=== PATIENT | female | born 1955 | race Caucasian/White ===

== ENCOUNTER 2016-05-31 21:41 | Emergency (ER) | payer MEDICARE, OTHER ==
[~2016-05-31] VITALS: Ht 165.1 cm; Wt 84.4 kg
[2016-05-31] MEDS ORDERED: LACTATED RINGERS 1,000 ML IV ONE (22:51)
--- NOTE | 2016-05-31 23:03 | ED GI ---
General Chief Complaint: Abdominal/GI Problems Stated Complaint: NAUSEA/DIZZINESS/WEAKNESS Nursing Triage Note: PT CO OF EPIGASTRIC PAIN AND SOME DIARRHEA, PT STATES REALLY THIRSTY Sepsis Screen: No Definite Risk Source of Information: Patient (VAGUE HISTORIAN) History of Present Illness Time Seen By Provider: 22:38 Initial Comments PT STATES "I JUST DON'T FEEL GOOD"--VERY DIFFICULT TO OBTAIN ANY INFORMATION FROM PT PT EVENTUALLY STATES SHE HAS HAD EPIGASTRIC PAIN , NAUSEA AND DIARRHEA FOR A COUPLE OF WEEKS SYMPTOMS MOSTLY WITH EATING, BUT HAS CONTINUED TO EAT REGULARLY--ATE BANANAS, CHICKEN AND VEGETABLES TODAY, AND HAS HAD MOSTLY TEA TODAY WITH SOME WATER, APPROXIMATELY 60 OZ PT HAS NOT HAD ANY DIARRHEA FOR 3 DAYS, SINCE TAKING IMMODIUM, NO BM SINCE THEN C/O NAUSEA, NO VOMITING HAD TEMP OF 99.6 TODAY STATES SHE HAS LOST 11 LBS IN THE LAST COUPLE OF WEEKS C/O BEING VERY THIRSTY NO URINARY SYMPTOMS, VOIDING A NORMAL AMOUNT HAS HISTORY OF PANCREATITIS, AND THIS FEELS SIMILAR HAS NOT SOUGHT CARE UNTIL TODAY SYMPTOMS NO DIFFERENT TODAY PT HAS HAD GASTRIC SLEEVE BY DR. OLSEN 1 YEAR AGO PT ALSO HAS HISTORY OF MULTIPLE ABDOMINAL COMPLICATIONS 11 YEARS AGO-2006--HAD PANCREATITIS AND HAD ERCP WITH BILIARY / PANCREATIC DUCT STENTS, WITH BOWEL PERFORATION, RETROPERITONEAL ABSCESS, PNEUMOTHORAX, SEPSIS--HOSPITALIZED X 9 WEEKS . PCP: AMADEO HAILE SURGEON: , NEXT APPOINTMENT IN 1 WEEK FOR ROUTINE FOLLOW UP Allergies and Home Medications Allergies Coded Allergies: paroxetine (Unverified Allergy, Intermediate, NAUSEA/VOMITING, 04/21/15) morphine (Unverified Allergy, Mild, MIGRAINES, 04/21/15) promethazine (Unverified Allergy, Unknown, MARKETING AUTOMATION ANALYST, 04/21/15) sumatriptan (Unverified Allergy, Unknown, MUSCLE PAIN, 04/21/15) Home Medications Nitrofurantoin Monohyd/M-Cryst 100 Mg Capsule, 100 MG PO BID, #20 Prescribed by: REVA WEST on 06/01/16 013 Ondansetron 4 Mg Tab.rapdis, 4 MG PO Q4H, #10 Prescribed by: REVA WEST on 06/01/16 0131 Sucralfate 1 Gm/10 Ml Oral.susp, 1 GM PO QID AC AND HS, #400 Prescribed by: REVA WEST on 06/01/16 0131 Review of Systems Constitutional: see HPI, malaise, weakness EENTM: No Symptoms Reported Respiratory: No Symptoms Reported Cardiovascular: No Symptoms Reported Gastrointestinal: See HPI, Abdominal Pain, Diarrhea, Nausea, Denies Vomiting Genitourinary: No Symptoms Reported Musculoskeletal: no symptoms reported Skin: no symptoms reported Psychiatric/Neurological: No Symptoms Reported Endocrine: No Symptoms Reported Hematologic/Lymphatic: See HPI, Anemia (LAST HGB 10.1) Past Ylflzak-Wrpzuq-Pvqvvp Hx Patient Social History Alcohol Use: Denies Use Recreational Drug Use: No Smoking Status: Never a Smoker Recent Foreign Travel: No Contact w/Someone Who Travel: No Recent Infectious Disease Expo: No Recent Hopitalizations: No (SEE LIST FOR CURRENT HX, EXTENSIVE) Surgeries HX Surgeries: Yes (BILATERAL BREAST BIOPSIES;JAW SURGERY FOR MAL OCCLUSION; HYST/BSO; RIGHT OVARIAN CYST;MULTIPLE ERCP'S-BILIARY /PANCREATIC STENTS; BOWEL PERFORATION AND PNEUMOTHORAX WITH ERCP 2005-WITH RETROPERITONEAL ABSCESS AND SEPSIS, RIGHT HYDRONEPHROSIS DUE TO ABSCESS WITH URETERAL STENT 05/2006; EGD'S ; GASTRIC SLEEVE 05/2015; SPINAL STEROID INJECTIONS; BILATERAL KNEE REPLACEMENTS ; LEFT PERONEAL NERVE REPAIR; SKIN CANCER REMOVED) Surgeries: Abdominal, Breast, Gallbladder, Hysterectomy, Oophorectomy, Orthopedic, Tonsillectomy Respiratory Hx Respiratory Disorders: Yes (LEFT LUNG NODULE) Respiratory Disorders: Pneumonia, Chronic Bronchitis, COPD Neurological Hx Neurological Disorders: Yes Neurological Disorders: Headaches /Migraines Reproductive System Female Reproductive Disorders: Ovarian Cyst PHYSICAL THERAPIST History: Hysterectomy Genitourinary Hx Genitourinary Disorders: Yes (RIGHT HYDRONEPHROSIS FROM RETROPERITONEAL ABSCESS--WITH URETERAL STENT PLACEMENT) Genitourinary Disorders: Bladder Infection Gastrointestinal Hx Gastrointestinal Disorders: Yes (ERCP'S / BILIARY AND PANCREATIC STENTS; BOWEL PERFORATION/ PNEUMOTHORAX / RETROPERITONEAL ABSCESS WITH RIGHT HYDRONEPHROSIS/URETERAL STENT AND SEPSIS--HOSPITALIZED X 9 WEEKS; MULTIPLE EPISODES OF PANCREATITIS; GASTRIC SLEEVE SURGERY 05/2015) Gastrointestinal Disorders: Gastroesophageal Reflux, Pancreatitis, Ulcer, Gall Bladder Disease Musculoskeletal Hx Musculoskeletal Disorders: Yes (CHRONIC GENERALIZED PAIN / JOINT PAIN; SJOGREN'S SYNDROME) Musculoskeletal Disorders: Rheumatoid Arthritis, Chronic Back Pain Endocrine Hx Endocrine Disorders: Yes Endocrine Disorders: Lupus HEENT HX ENT Disorders: Yes (JAW SURGERY FOR MAL OCCLUSION) Cancer Hx Cancer: Yes Cancer: Skin Psychosocial Hx Psychiatric Problems: Yes Behavioral Health Disorders: Anxiety, Depression Integumentary HX Skin/Integumentary Disorder: No Blood Transfusions Hx Blood Disorders: Yes (ANEMIA) Physical Exam Vital Signs VS - Last 72 Hours, by Label 05/31/16 22:44 Temp 98.4 Pulse 68 Resp 18 B/P (MAP) 130/81 Capillary Refill : Less Than 3 Seconds General Appearance: WD/WN, no apparent distress HEENT: PERRL/EOMI Neck: normal inspection Respiratory: normal breath sounds, no respiratory distress, no accessory muscle use Cardiovascular: regular rate, rhythm, no murmur Gastrointestinal: normal bowel sounds, soft, no organomegaly, no pulsatile mass , No distended, No guarding, No rebound, tenderness (SUPRAPUBIC), No hernia, No mass Extremities: normal inspection Back: no CVA tenderness Neurologic/Psychiatric: loan examiner II-XII nml as tested, no motor/sensory deficits, alert, normal mood/affect, oriented x 3 Skin: warm/dry, pallor Focused Exam Lactic Acid Level Laboratory Tests Test 05/31/16 23:36 Lactic Acid Level 0.51 MMOL/L (0.50-2.00) Progress/Results/Core Measures Results/Orders Lab Results Laboratory Tests Test 05/31/16 23:00 05/31/16 23:15 05/31/16 23:36 Range/Units Urine Color YELLOW Urine Clarity CLEAR Urine pH 6 5-9 Urine Specific [place] 1.020 1.016-1.022 Urine Protein NEGATIVE NEGATIVE Urine Glucose (UA) NEGATIVE NEGATIVE Urine Ketones NEGATIVE NEGATIVE Urine Nitrite NEGATIVE NEGATIVE Urine Bilirubin NEGATIVE NEGATIVE Urine Urobilinogen NORMAL NORMAL MG/DL Urine Leukocyte Esterase 3+ H NEGATIVE Urine RBC (Auto) NEGATIVE NEGATIVE Urine RBC NONE /HPF Urine WBC 5-10 H /HPF Urine Squamous Epithelial Cells 0-2 /HPF Urine Crystals NONE /LPF Urine Bacteria FEW H /HPF Urine Casts NONE /LPF Urine Mucus SMALL H /LPF Urine Culture Indicated YES Urine Opiates Screen NEGATIVE NEGATIVE Urine Oxycodone Screen NEGATIVE NEGATIVE Urine Methadone Screen NEGATIVE NEGATIVE Urine Propoxyphene Screen NEGATIVE NEGATIVE Urine Barbiturates Screen NEGATIVE NEGATIVE Ur Tricyclic Antidepressants Screen POSITIVE H NEGATIVE Urine Phencyclidine Screen NEGATIVE NEGATIVE Urine Amphetamines Screen NEGATIVE NEGATIVE Urine Methamphetamines Screen NEGATIVE NEGATIVE Urine Benzodiazepines Screen NEGATIVE NEGATIVE Urine Cocaine Screen NEGATIVE NEGATIVE Urine Cannabinoids Screen NEGATIVE NEGATIVE White Blood Count 7.7 4.3-11.0 10^3/uL Red Blood Count 4.22 L 4.35-5.85 10^6/uL Hemoglobin 10.7 L 11.5-16.0 G/DL Hematocrit 36 35-52 % Mean Corpuscular Volume 84 80-99 FL Mean Corpuscular Hemoglobin 25 25-34 PG Mean Corpuscular Hemoglobin Concent 30 L 32-36 G/DL Red Cell Distribution Width 14.0 10.0-14.5 % Platelet Count 212 130-400 10^3/uL Mean Platelet Volume 10.7 H 7.4-10.4 FL Neutrophils (%) (Auto) 54 42-75 % Lymphocytes (%) (Auto) 29 12-44 % Monocytes (%) (Auto) 15 H 0-12 % Eosinophils (%) (Auto) 2 0-10 % Basophils (%) (Auto) 0 0-10 % Neutrophils # (Auto) 4.2 1.8-7.8 X 10^3 Lymphocytes # (Auto) 2.2 1.0-4.0 X 10^3 Monocytes # (Auto) 1.1 H 0.0-1.0 X 10^3 Eosinophils # (Auto) 0.1 0.0-0.3 10^3/uL Basophils # (Auto) 0.0 0.0-0.1 10^3/uL Sodium Level 143 135-145 MMOL/L Potassium Level 3.6 3.6-5.0 MMOL/L Chloride Level 109 H 98-107 MMOL/L Carbon Dioxide Level 25 21-32 MMOL/L Anion Gap 9 5-14 MMOL/L Blood Urea Nitrogen 11 7-18 MG/DL Creatinine 0.79 0.60-1.30 MG/DL Estimat Glomerular Filtration Rate > 60 BUN/Creatinine Ratio 14 Glucose Level 97 70-105 MG/DL Calcium Level 8.7 8.5-10.1 MG/DL Magnesium Level 2.2 1.8-2.4 MG/DL Total Bilirubin 0.2 0.1-1.0 MG/DL Aspartate Amino Transf (AST/SGOT) 14 5-34 U/L Alanine Aminotransferase (ALT/SGPT) 9 0-55 U/L Alkaline Phosphatase 76 40-136 U/L Total Protein 6.1 L 6.4-8.2 G/DL Albumin 3.8 3.2-4.5 G/DL Amylase Level 44 25-125 U/L Lipase 17 8-78 U/L Lactic Acid Level 0.51 0.50-2.00 MMOL/L My Orders Orders - REVA WEST DO Saline Lock/Iv-Start (05/31/16 22:51) Amylase (05/31/16 22:51) Cbc With Automated Diff (05/31/16 22:51) Comprehensive Metabolic Panel (05/31/16:51) Drug Screen Stat (Urine) (05/31/16:51) Lactic Acid Analyzer (05/31/16:51) Lipase (05/31/16:51) Magnesium (05/31/16 22:51) Ua Culture If Indicated (05/31/16:) Blood Culture (05/31/16:51) Saline Lock/Iv-Start (05/31/16:51) Lactated Ringers (Lr 1000 Ml Iv Solution (05/31/16 22:51) Urine Culture (05/31/16 23:00) Ct Abdomen/Pelvis W (06/01/16 00:01) Acute Abd Series (06/01/16 00:01) Ondansetron Injection (Zofran Injectio (06/01/16 00:15) Iohexol Injection (Omnipaque 350 Mg/Ml 1 (06/01/16 00:30) Ns (Ivpb) (Sodium Chloride 0.9% Ivpb Bag (06/01/16 00:30) Antacid Suspension (Mylanta Suspension (06/01/16 01:30) Lidocaine 2% Viscous 15 Ml (Xylocaine Vi (06/01/16 01:30) Rx-Ondansetron Po (Rx-Zofran Po) (06/01/16 01:29) Rx-Nitrofurantoin [place] (Rx-Macrobid) (06/01/16 01:29) Medications Given in ED Current Medications Medications Dose Ordered Sig/Angel Route Start Time Stop Time Status Last Admin Dose Admin Iohexol 100 ml ONCE ONCE IV 06/01/16 00:30 06/01/16 00:31 DC 06/01/16 00:21 100 ML Lactated Ringer's 1,000 ml @ 0 mls/hr Q0M ONCE IV 05/31/16 22:51 05/31/16 22:52 DC 05/31/16 23:19 1,000 MLS/HR Ondansetron HCl 4 mg ONCE ONCE IVP 06/01/16 00:15 06/01/16 00:16 DC 06/01/16 00:47 4 MG Sodium Chloride 100 ml ONCE ONCE IV 06/01/16 00:30 06/01/16 00:31 DC 06/01/16 00:21 80 ML Vital Signs/I&O Vital Sign - Last 12Hours 05/31/16 22:44 Temp 98.4 Pulse 68 Resp 18 B/P (MAP) 130/81 Blood Pressure Mean: 97 Progress Note : Progress Note SYMPTOMS RESOLVED AT DISMISSAL Diagnostic Imaging Comments ACUTE ABDOMEN XRAYS--NO ACUTE PROCESS, PENDING RADIOLOGIST REVIEW CT ABDOMEN/PELVIS--NO ACUTE PROCESS, NON-SPECIFIC BOWEL GAS PATTERN, MILD TO MODERATE RETAINED STOOL. POST SURGICAL CHANGES, PARTIAL CHRONIC RIGHT UPJ OBSTRUCTION, TINY LLL LUNG NODULE--PER [facility] VIA FAX AT 0110 Reviewed: Reviewed by Me Departure Impression Impression: Primary Impression: Epigastric abdominal pain Additional Impression: UTI (urinary tract infection) Disposition: HOME, SELF-CARE Condition: Improved Departure-Patient Inst. Referrals: ISELA OLSEN MD, KIMBERLY MD (PCP) Primary Care Physician Patient Instructions: Acute Abdomen (Belly Pain), Adult (DC), Urinary Tract Infection, Adult (DC) Add. Discharge Instructions: CONTINUE YOUR CURRENT MEDICATIONS PRESCRIBED KEEP YOUR APPOINTMENT WITH DR. OLSEN NEXT WEEK SCHEDULED All discharge instructions reviewed with patient and/or family. Voiced understanding. Scripts Nitrofurantoin Monohyd/M-Cryst (Macrobid 100 mg Capsule) 100 Mg Capsule 100 MG PO BID, #20 CAP Prov: REVA WEST DO 06/01/16 Ondansetron (Zofran Odt) 4 Mg Tab.rapdis 4 MG PO Q4H for Nausea/Vomiting, #10 TAB Prov: REVA WEST DO 06/01/16 Sucralfate (Carafate) 1 Gm/10 Ml Oral.susp 1 GM PO QID AC AND HS, #400 ML Prov: REVA WEST DO 06/01/16 REVA WEST DO May 31, 2016 23:03
[2016-05-31 23:09] LABS: BILIRUBIN,URINE NEGATIVE (NEGATIVE); KETONES,URINE NEGATIVE (NEGATIVE); LEUKOCYTE ESTERASE ,URINE 3+ (NEGATIVE); NITRITE,URINE NEGATIVE (NEGATIVE); PH,URINE 6 (5-9); PROTEIN,URINE NEGATIVE (NEGATIVE); UROBILINOGEN,URINE NORMAL (NORMAL)
[2016-05-31 23:17] LABS: SQUAMOUS EPITHELIAL CELL,UR 0-2 /HPF
[2016-05-31 23:25] LABS: BASOPHILS % (AUTO) 0 % (0-10); EOSINOPHILS # (AUTO) 0.1 10^3/uL (0.0-0.3); EOSINOPHILS % (AUTO) 2 % (0-10); LYMPHOCYTES # (AUTO) 2.2 X 10^3 (1.0-4.0); LYMPHOCYTES % (AUTO) 29 % (12-44); MEAN CORPUSCULAR HEMOGLOBIN 25 PG (25-34); MEAN CORPUSCULAR HGB CONC 30 G/DL (32-36); MEAN CORPUSCULAR VOLUME 84 FL (80-99); MEAN PLATELET VOLUME 10.7 FL (7.4-10.4); MONOCYTES # (AUTO) 1.1 X 10^3 (0.0-1.0); MONOCYTES % (AUTO) 15 % (0-12); NEUTROPHILS # (AUTO) 4.2 X 10^3 (1.8-7.8); NEUTROPHILS % (AUTO) 54 % (42-75); PLATELET COUNT 212 10^3/uL (130-400); RED BLOOD COUNT 4.22 10^6/uL (4.35-5.85); WHITE BLOOD COUNT 7.7 10^3/uL (4.3-11.0)
[2016-05-31 23:50] LABS: ALANINE AMINOTRANSFERASE 9 U/L (0-55); ALBUMIN 3.8 G/DL (3.2-4.5); AMYLASE 44 U/L (25-125); ANION GAP 9 MMOL/L (5-14); ASPARTATE AMINO TRANSFERASE 14 U/L (5-34); BILIRUBIN,TOTAL 0.2 MG/DL (0.1-1.0); BLOOD UREA NITROGEN 11 MG/DL (7-18); BUN/CREATININE RATIO 14; CALCIUM 8.7 MG/DL (8.5-10.1); CARBON DIOXIDE 25 MMOL/L (21-32); CHLORIDE 109 MMOL/L (98-107); CREATININE SERUM 0.79 MG/DL (0.60-1.30); GFR ESTIMATED > 60; GLUCOSE 97 MG/DL (70-105); LIPASE 17 U/L (8-78); MAGNESIUM 2.2 MG/DL (1.8-2.4); POTASSIUM 3.6 MMOL/L (3.6-5.0); SODIUM 143 MMOL/L (135-145); TOTAL PROTEIN 6.1 G/DL (6.4-8.2)
[2016-06-01] MEDS ORDERED: ONDANSETRON 4 MG/2 ML (SDV) Z0FRAN IVP ONE (00:15)
[2016-06-01] MEDS ORDERED: IOHEXOL 350 MG/ML 100 ML (OMNIPAQUE 350) VIAL IV ONE (00:30)
[2016-06-01] MEDS ORDERED: NS 100 ML (IVPB) BAG IV ONE (00:30)
[2016-06-01] MEDS ORDERED: RX-ONDANSETRON 4 MG ODT (ZOFRAN) PPK #4 PO STA (01:29)
[2016-06-01] MEDS ORDERED: RX-NITROFURANTOIN 100 MG (MACROBID) CAP PPK#2 PO STA (01:29)
[2016-06-01] MEDS ORDERED: LIDOCAINE 2% VISCOUS 15 ML UDC PO ONE (01:30)
[2016-06-01] MEDS ORDERED: ANTACID SUSP 30 ML UDC (MYLANTA) PO ONE (01:30)
[2016-06-01] MEDS ORDERED: SUCR1ORA5 PO (01:31)
[2016-06-01] MEDS ORDERED: NITR-65 PO (01:31)
[2016-06-01] MEDS ORDERED: ONDA4TAB8 PO (01:31)
[2016-06-01 01:41] VITALS: BP 135/78
--- NOTE | 2016-06-01 07:00 | Diagnostic Imaging Report ---
PROCEDURE: CT abdomen and pelvis with contrast. TECHNIQUE: Multiple contiguous axial images were obtained through the abdomen and pelvis after administration of intravenous contrast. INDICATION: Epigastric pain with some diarrhea. History of the known lung nodules. Cholecystectomy and hysterectomy. Comparison with 07/04/2014 CT scan. FINDINGS: There is a noncalcified 5 mm nodule in the left lung base laterally. This was present on previous exam and has not changed significantly in the interim. No new lesions have developed. Liver appears normal. Bile ducts are not dilated. Pancreas and spleen are normal. Adrenal glands appear normal. Kidneys show symmetrical enhancement. There is prominence of the renal pelvis on the right which has not changed significantly since previous exam. Surgical changes noted of the stomach. Small bowel is not dilated. Colon shows normal stool and gas pattern. There is normal enhancement of the abdominal aorta and vessels without evidence of aneurysm. There is no free air free fluid. No pelvic masses. IMPRESSION: 1. No acute intra-abdominal abnormality. 2. 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 3. 5 mm nodule left lower lobe unchanged since 07/04/2014. These findings are in agreement with preliminary report. Dictated by: Dictated on workstation # [id number]
--- NOTE | 2016-06-01 07:44 | Diagnostic Imaging Report ---
INDICATION: Abdominal pain. FINDINGS: The lungs are clear. There is no free air under the diaphragm. Upright and supine abdomen shows no air-fluid levels. No dilated loops of bowel. There is normal stool and gas pattern throughout the colon. Multiple surgical clips noted in the upper abdomen. No pathologic calcification demonstrated. IMPRESSION: No acute abnormalities demonstrated. Dictated by: Dictated on workstation # [id number]
== END 2016-06-01 01:44 | disposition home or self-care (01) ==
LOC: EDUNIT# 21:41 → ER 21:43
DX: R10.13 Epigastric pain (principal); N39.0 Urinary tract infection, site not specified; J44.9 Chronic obstructive pulmonary disease, unspecified; R91.1 Solitary pulmonary nodule; Z90.49 Acquired absence of other specified parts of digestive tract; Z98.84 Bariatric surgery status
CPT/HCPCS: 36415; 74022; 74177; 80053; 80306; 81000; 82150; 83605; 83690; 83735; 85025; 87040; 87077; 87088; 87186; 96361; 96374

== ENCOUNTER 2019-12-23 05:42 | Outpatient (RCR) | payer MEDICARE, OTHER ==
[~2019-12-23] VITALS: Ht 165.1 cm; Wt 99.1 kg
[~2019-12-23 05:42] MED LIST: BUPR200T2 PO; CITA40TA19 PO; CYCL10TA9 PO; CYCL1DRO OU; GBPN600T PO; NITR-65 PO; ONDA4TAB8 PO; PRED5TAB PO; SUCR1ORA5 PO; TRAZ150T72 PO
== END 2019-12-23 09:43 | disposition home or self-care (01) ==
LOC: PREOP 05:42
PROVIDERS: ATTEND Surgery
DX: Z01.812 Encounter for preprocedural laboratory examination (principal); K21.9 Gastro-esophageal reflux disease without esophagitis; Z20.828 Contact with and (suspected) exposure to other viral communicable diseases
CPT/HCPCS: 87635

== ENCOUNTER 2019-12-25 09:52 | Day surgery (SDC) | payer MEDICARE, OTHER ==
--- NOTE | 2019-12-19 07:33 | HISTORY AND PHYSICAL ---
DATE OF SERVICE: DATE OF ADMISSION: 12/25/2019. ATTENDING PRIMARY CARE PHYSICIAN: Dr. Rodrigues. HISTORY OF PRESENT ILLNESS: The patient is a 64-year-old female, who is status post laparoscopic gastric sleeve resection on 05/18/2015. She initially did well with surgery; however, has not been able to exercise very much; however, has debilitating rheumatoid arthritis. At this time, she states that her pain is significantly severe and she has this pain that starts in the right buttock and extends throughout the right lower extremity. Her sales merchandising specialist feels that this is a nerve problem and she is scheduled to see a specialist for possible nerve stimulator placement. She reports that she has had issues with reflux and regurgitation. This was not initially problem; however, has developed and worsened over time. She is currently on Pepcid, Nexium and Carafate, which has not helped. She does not report any hematemesis, no coffee ground emesis. PAST MEDICAL HISTORY: Rheumatoid arthritis, shingles, depression, muscle spasms, gastroesophageal reflux disease, migraine headaches, Sjogren syndrome, obstructive sleep apnea. PAST SURGICAL HISTORY: Tonsillectomy in 1962, bilateral breast biopsies in 1976, repair of malocclusion jaw in 1979, total hysterectomy in 1994, removal of abdominal wall benign mass in 1997, cholecystectomy in 2001, ERCP in 2001, repair of bowel perforation in 2005, right total knee arthroplasty in 2008, left total knee arthroplasty in 2010. ALLERGIES: PAXIL, IMITREX, MORPHINE. EFFEXOR. MEDICATIONS: Wellbutrin 200 mg daily, Celexa 40 mg daily, Flexeril 10 mg t.i.d. p.r.n., Restasis eye drops b.i.d., gabapentin 600 mg b.i.d., hydrocodone 10/325 mg 5 times a day, prednisone 5 mg daily, Compazine 10 mg q.6 hours p.r.n., trazodone 150 mg at bedtime, Zanaflex daily. SOCIAL HISTORY: Negative smoke, negative alcohol. FAMILY HISTORY: Father with lung cancer in his 60s. Mother, myocardial infarction at age 78. VITAL SIGNS: Stable. Blood pressure 148/81. Preoperative weight 249.6 pounds, last weight 186.2 pounds, today's weight is 218.6 pounds at 5 feet 5 inches and a body mass index of 36.4. Total weight loss of 22 pounds. REVIEW OF SYSTEMS: A well-nourished female, currently in no acute distress. She is not experiencing any shortness of breath or difficulty breathing. No chest pain, palpitations, diaphoresis. Intermittent episodes of epigastric pain as well as a pressure sensation substernally with regurgitation, which was initially mild; however, it has become more frequent. No hematemesis, no coffee ground emesis. No diarrhea, constipation, no red blood per rectum, no dark tarry stools. No fever, chills, no recent inadvertent weight loss. All other review of systems negative. PHYSICAL EXAMINATION: CHEST: Clear. Good breath sounds bilaterally. HEART: Regular, no murmurs. EXTREMITIES: No lower extremity edema, negative Homans sign. HEENT: No scleral icterus. NECK: No cervical lymphadenopathy. ABDOMEN: Soft, nondistended with pain in the epigastric region upon deep palpation. No peritoneal signs. No hernias. SKIN: Warm, dry. ASSESSMENT AND PLAN: A 64-year-old female with gastroesophageal reflux disease, reflux as well as regurgitation. This may be due to reflux esophagitis; however, there is also the possibility of a stricture at the gastroesophageal junction as well as the body of the stomach where the gastric sleeve resection had occurred and we will proceed with an EGD, biopsies as appropriate as well as possible balloon dilatation. Job ID: [id number] DocumentID: [id number] Dictated Date: 12/17/2019 16:23:22 Emergency Communications Officer Date: 12/17/2019 17:10:40 Dictated By: ISELA OLSEN MD [facility]
[2019-12-25] VITALS (17 sets, daily range): BP systolic 101–165; BP diastolic 56–74
[~2019-12-25] VITALS: Ht 165.1 cm; Wt 99.1 kg
[2019-12-25] MEDS ORDERED: NS IV 500 ML 500 ML IV PRN (10:00)
[2019-12-25] MEDS ORDERED: HURRICAINE EXT TUBE (BENZOCAINE) XX PRN (10:00)
[2019-12-25] MEDS ORDERED: MIDAZOLAM 5 MG/5 ML (VERSED) VIAL IV ONE (10:00)
[2019-12-25] MEDS ORDERED: fentaNYL INJECTION 100 MCG/2 ML AMP IVP ONE (10:00)
[2019-12-25] MEDS ORDERED: LIDOCAINE JELLY 2% 6 ML SYRINGE MM PRN (10:00)
[2019-12-25] MEDS ORDERED: NS IV 500 ML 500 ML ONE (10:02)
--- NOTE | 2019-12-25 10:24 | Conscious Sedation/ASA ---
Conscious Sedation Pre-Proced Time 10:00 ASA Score 2 For ASA 3 and 4: Consider anesthesia and medical clearance. Also, for patients with a history of failed moderate sedation consider anesthesia. Airway Lungs Heart ASA score ASA 1: a normal healthy patient ASA 2: a patient with a mild systemic disease (mid diabetes, controlled hypertension, obesity ASA 3: a patient with a severe systemic disease that limits activity (angina, COPD, prior Myocardial infarction) ASA 4: a patient with an incapacitating disease that is a constant threat to life (CHF, renal failure) ASA 5: a moribund patient not expected to survive 24 hrs. (ruptured aneurysm) ASA 6: a declared brain- patient whose organs are being harvested. For emergent operations, add the letter E after the classification Mallampati Classification Grade 2 Sedation Plan Analgesia, Amnesia, Plan communicated to team members, Discussed options with patient/fam, Discussed risks with patient/fam The patient is an appropriate candidate to undergo the planned procedure, sedation, and anesthesia. The patient immediately re-assessed prior to indication. ISELA OLSEN MD Dec 25, 2019 10:24
--- NOTE | 2019-12-25 10:25 | Progress Note-Pre Operative ---
Pre-Operative Progress Note H&P Reviewed The H&P was reviewed, patient examined and no changes noted. Date Seen by Provider: Dec 25, 2019 Time Seen by Provider: 10:00 Date H&P Reviewed: Dec 25, 2019 Time H&P Reviewed: 10:00 Pre-Operative Diagnosis: dysphagia, GERD ISELA OLSEN MD Dec 25, 2019 10:25
--- NOTE | 2019-12-25 10:26 | Discharge Inst-Surgical ---
D/C Lap Instructions-PRETTY Follow Up Activity as tolerated High Fiber Diet 25g or more per day Avoid Alcohol, Caffeine, Spicy [place] and Acid foods. Drink 64 fluid oz or more of fluids per day. Symptoms to Report: Fever over 101 degree F, Nausea/Vomiting If any problems/questions: Contact your physician or go to Emergency Room ISELA OLSEN MD Dec 25, 2019 10:26
[2019-12-25] MEDS ORDERED: ACETAMINOPHEN 325 MG TABLET PO PRN (10:30)
[2019-12-25] MEDS ORDERED: ONDANSETRON 4 MG/2 ML (SDV) Z0FRAN IVP PRN (10:30)
[2019-12-25] MEDS ORDERED: HYDROcodone/APAP 5 MG/325 MG (LORTAB) TAB PO PRN (10:30)
[2019-12-25] MEDS ORDERED: SUCR1TAB36 PO (10:33)
[2019-12-25] MEDS ORDERED: FAMO-119 PO (10:33)
[2019-12-25] MEDS ORDERED: NF-ESOM40C PO (10:33)
[2019-12-25] MEDS ORDERED: HURRICAINE EXT TUBE (BENZOCAINE) ONE (11:04)
[2019-12-25] MEDS ORDERED: LIDOCAINE JELLY 2% 6 ML SYRINGE ONE (11:04)
[2019-12-25] MEDS ORDERED: fentaNYL INJECTION 100 MCG/2 ML AMP ONE ×2 (11:05→11:25)
[2019-12-25] MEDS ORDERED: MIDAZOLAM 5 MG/5 ML (VERSED) VIAL ONE ×2 (11:05→11:25)
--- NOTE | 2019-12-25 11:50 | Progress Note-Post Operative ---
Post-Operative Progess Note Surgeon (s)/Video Specialist (s) Surgeon ISELA OLSEN MD Video Specialist: none Pre-Operative Diagnosis dysphagia, GERD Post-Operative Diagnosis reflux esophagitis(stage2) with mild distal esoph stricture, small HH(1.5cm), mild distal antral stricture, moderate gastritis. Procedure & Operative Findings Date of Procedure 12/25/19 Procedure Performed/Findings EGD with bx and balloon dilatation x2. Anesthesia Type cs Estimated Blood Loss Estimated blood loss (mL): minimal Specimens/Packing Specimens Removed ge jxn, antrum ISELA OLSEN MD Dec 25, 2019 11:50
--- NOTE | 2019-12-25 12:30 | NUR ---
PT WHEN TAKEN OFF OF O2 DROPS TO 87-88%, PT VERBALIZES FEELING TIRED. O2 CONTINUED WHILE PT RESTING THEN WILL ATTEMPT TO REMOVE IN A LITTLE BIT.
--- NOTE | 2019-12-25 21:41 | OPERATIVE REPORT ---
DATE OF SERVICE: 12/25/2019 ATTENDING PRIMARY CARE PHYSICIAN: Dr. Rodrigues. PREOPERATIVE DIAGNOSES: Dysphagia, gastroesophageal reflux disease, status post gastric sleeve resection. POSTOPERATIVE DIAGNOSES: Reflux esophagitis stage II with a mild distal esophageal stricture, small hiatal hernia 1.5 cm in size, mild stricture at the incisura angularis of the distal antrum. No distal obstructions. PROCEDURE: EGD with biopsy and balloon dilatation x2. SURGEON: Isela Olsen MD. ANESTHESIA: Conscious sedation. ESTIMATED BLOOD LOSS: Minimal. FINDINGS: Reflux esophagitis stage II with a mild distal esophageal stricture, small hiatal hernia 1.5 cm in size, mild stricture at the incisura angularis of the distal antrum. No distal obstructions. DISPOSITION: The patient tolerated the procedure well. INDICATIONS: The patient is a 64-year-old female who is status post laparoscopic gastric sleeve resection on 05/18/2015. She initially did well with the surgery; however, has not been able to exercise very much due to a debilitating rheumatoid arthritis. She states that she has significant pain throughout the right buttock and extends through the entire right lower extremity. She is scheduled to see pain specialist to see if possibly place a nerve stimulator placement. She reports that she has had issues with reflux and regurgitation as well as dysphagia, which has slowly developed over time. She is currently on Pepcid, Nexium and Carafate and states that this has not helped much. She does not report any hematemesis, no coffee ground emesis. DESCRIPTION OF PROCEDURE: The patient was brought to the endoscopy suite, laid in the left lateral decubitus position. After adequate IV pain and sedative medications and conscious sedation anesthesia, the mouthpiece was applied. The endoscope was placed in the mouth, visualizing the pharynx and hypopharyngeal region. Vocal cords, epiglottis and vallecula identified and appeared to be normal. The endoscope was then gently intubated into the esophageal opening and esophagus insufflated. The endoscope was then advanced to the first, second and third portions of esophagus at the level of GE junction, reflux esophagitis stage II identified with a mild distal esophageal stricture and Schatzki's ring identified. This area was biopsied with forceps with visualization of good hemostasis. The endoscope was then advanced to the pylorus through the into the stomach and endoscope retroflexed, visualizing a small hiatal hernia approximately 1.5 cm in size. The Schatzki's ring was also identified in the retroflexed view. The endoscope was then advanced and at the area of resection near the incisura angularis of the lesser curvature, there was a mild stricture also identified. The endoscope was able to pass through this region without any difficulty and there was a moderate gastritis of the distal antrum. A biopsy was taken of the antrum with visualization of good hemostasis. The endoscope was then advanced to the pylorus and the first and second portion of the duodenum, which appeared normal with no distal obstructions. We then proceeded with balloon dilatation of the distal antral stricture and the balloon was placed into the distal antrum and pulled back to the area of stricture and insufflated to 2, 4 and 6 atmospheres of pressure with moderate resistance or 20 mm in luminal diameter. This was left in place for 60 seconds and then removed with visualization of good hemostasis as well as no mucosal tears. We then pullback the balloon to the gastroesophageal junction and proceeded in a similar manner from 2, 4 and 6 atmospheres of pressure or 20 mm in luminal diameter with moderate resistance and left this in place for 60 seconds. The balloon was desufflated and removed with visualization of good hemostasis as well as no mucosal tears. The endoscope was then slowly withdrawn while taking a second look and suctioning residual air with no additional findings. The patient tolerated the procedure well. We will recommend the necessary lifestyle and diet accommodation including small and more frequent meals, avoidance of eating at night as well as head elevation while lying supine, whichever H2 antagonist or PPI acid captain/airline pilot combination that works best for her we will have her continue. She is scheduled to see a specialist for her significant pain secondary to her rheumatoid arthritis. However, she does need to proceed with any form of regularly scheduled exercise even if it only encompasses her upper extremities to increase her heart rate for a total of 150 minutes on a weekly basis. This should help increase her basal metabolic rate and also help with initiation of weight loss again. Job ID: [id number] DocumentID: [id number] Dictated Date: 12/25/2019 11:46:24 Automatic Embroidery Machine Tender Date: 12/25/2019 21:41:01 Dictated By: ISELA OLSEN MD
== END 2019-12-25 13:15 | disposition home or self-care (01) ==
LOC: ENDO 09:52
PROVIDERS: ATTEND Surgery
DX: K22.2 Esophageal obstruction (principal); K21.00 Gastro-esophageal reflux disease with esophagitis, without bleeding; K44.9 Diaphragmatic hernia without obstruction or gangrene; M06.9 Rheumatoid arthritis, unspecified; F32.9 Major depressive disorder, single episode, unspecified; K21.9 Gastro-esophageal reflux disease without esophagitis; G43.909 Migraine, unspecified, not intractable, without status migrainosus; G47.33 Obstructive sleep apnea (adult) (pediatric); M35.00 Sjogren syndrome, unspecified; Z79.899 Other long term (current) drug therapy; Z88.5 Allergy status to narcotic agent; Z88.8 Allergy status to other drugs, medicaments and biological substances; Z98.84 Bariatric surgery status; Z90.710 Acquired absence of both cervix and uterus; Z90.49 Acquired absence of other specified parts of digestive tract; Z80.1 Family history of malignant neoplasm of trachea, bronchus and lung; Z82.49 Family history of ischemic heart disease and other diseases of the circulatory system

== ENCOUNTER → 2022-02-24 | Outpatient (CLI) | payer MEDICARE, OTHER ==
[~2022-02-24] MED LIST changes: +CYCL10TA25 PO; -CYCL10TA9 PO; +FAMO-119 PO; +NF-ESOM40C PO; +SUCR1TAB36 PO
== END | disposition home or self-care (01) ==
LOC: PREOP 05:39
PROVIDERS: ATTEND Surgery
DX: Z01.818 Encounter for other preprocedural examination (principal)

== ENCOUNTER 2022-03-09 10:25 | Day surgery (SDC) | payer MEDICARE, OTHER ==
[~2022-03-09] VITALS: Ht 165 cm; Wt 95.6 kg
[~2022-03-09 10:25] MED LIST changes: +BREX0.5T PO; +BUPR300T98 PO; +BUTA1CAP41 PO; +HYDR-3584 PO; +HYDR-3820 PO; +MAG PO; +MILN50TA PO; +MULT-593 PO; +PANT40TA52 PO; +PROC10TA10 PO; +RIZA-1 PO; +TIZA2CAP9 PO; +TOFA11TA PO; +TRAZ-227 PO
[2022-03-09] MEDS ORDERED: LACTATED RINGERS 1,000 ML IV STA (10:38)
[2022-03-09] MEDS ORDERED: HURRICAINE EXT TUBE (BENZOCAINE) XX PRN (10:45)
[2022-03-09] MEDS ORDERED: LIDOCAINE JELLY 2% 6 ML SYRINGE MM PRN (10:45)
--- NOTE | 2022-03-09 10:54 | Progress Note-Pre Operative ---
Pre-Operative Progress Note Date of Available H&P: Mar 09, 2022 Date H&P Reviewed: Mar 09, 2022 Time H&P Reviewed: 10:30 History & Physical: No changes noted Pre-Operative Diagnosis: dysphagia w/ hx esoph and pyloric stricture ISELA OLSEN MD Mar 09, 2022 10:54
[2022-03-09 10:55] VITALS: BP 138/68
--- NOTE | 2022-03-09 10:56 | Discharge Inst-Surgical ---
D/C Lap Instructions-PRETTY Follow Up Activity as tolerated High Fiber Diet 25g or more per day Avoid Alcohol, Caffeine, Spicy [place] and Acid foods. Drink 64 fluid oz or more of fluids per day. Symptoms to Report: Fever over 101 degree F, Nausea/Vomiting If any problems/questions: Contact your physician or go to Emergency Room ISELA OLSEN MD Mar 09, 2022 10:55
[2022-03-09] MEDS ORDERED: ONDANSETRON 4 MG (ZOFRAN) ORAL DISSOLVE TAB PO PRN (11:00)
[2022-03-09] MEDS ORDERED: ONDANSETRON 4 MG/2 ML (SDV) Z0FRAN IVP PRN (11:00)
[2022-03-09] MEDS ORDERED: PROPOFOL INJECTION 50 ML IV ONE (11:30)
[2022-03-09 12:14] VITALS: BP 118/58
[2022-03-09 12:19] VITALS: BP 134/64
[2022-03-09 12:24] VITALS: BP 135/62
[2022-03-09 12:25] VITALS: BP 135/62
--- NOTE | 2022-03-09 12:28 | Progress Note-Post Operative ---
Post-Operative Progess Note Surgeon (s)/Pizza Delivery Driver (s) Surgeon ISELA OLSEN MD Pizza Delivery Driver: none Pre-Operative Diagnosis dysphagia w/ hx esoph and pyloric stricture Post-Operative Diagnosis reflux esophagitis(grade B-C) with mild dist esoph stricture, moderate gastritis, small HH(1.5cm), pyloric stricture. Procedure & Operative Findings Date of Procedure 03/09/22 Procedure Performed/Findings EGD with bx and balloon dilatation esophagus and pylorus. Anesthesia Type mac Estimated Blood Loss Estimated blood loss (mL): minimal Specimens/Packing Specimens Removed ge jxn, antrum ISELA OLSEN MD Mar 09, 2022 12:28
[2022-03-09 12:55] VITALS: BP 140/65
--- NOTE | 2022-03-09 14:21 | Anesthesia-General Post-Op ---
MAC Patient Condition Mental Status/LOC: Same as Preop Cardiovascular: Satisfactory Nausea/Vomiting: Absent Respiratory: Satisfactory Pain: Controlled Complications: Absent Post Op Complications Complications None Follow Up Care/Instructions Patient Instructions None needed. Anesthesiology Discharge Order Discharge Order Patient is doing well, no complaints, stable vital signs, no apparent adverse anesthesia problems. No complications reported per nursing. SABINO SAENZ CRNA Mar 09, 2022 14:21
--- NOTE | 2022-03-09 20:20 | OPERATIVE REPORT ---
DATE OF SERVICE: 03/09/2022 ATTENDING PRIMARY CARE: Dr. Tylor Luna. PREOPERATIVE DIAGNOSIS: History of dysphagia and esophageal stricture as well as pyloric stricture with recurrent dysphagia. POSTOPERATIVE DIAGNOSES: Reflux esophagitis, [place] between grade B and C with a mild distal esophageal stricture, small hiatal hernia, 1.5 cm in size. Intact gastric sleeve resection, moderate pyloric stricture. PROCEDURE: EGD with balloon dilatation of the pylorus and the gastroesophageal junction and biopsy. SURGEON:. Isela Olsen MD ANESTHESIA: Monitored anesthesia care. ESTIMATED BLOOD LOSS: Minimal. FINDINGS:. Reflux esophagitis, [place] between grade B and C with a mild distal esophageal stricture, small hiatal hernia, 1.5 cm in size. Intact gastric sleeve resection, moderate pyloric stricture. DISPOSITION: The patient tolerated the procedure well. INDICATIONS: The patient is a 66-year-old female status post laparoscopic gastric sleeve resection on 05/18/2015. She initially did well with this; however, has been unable to exercise due to debilitating rheumatoid arthritis. She did develop issues with dysphagia despite medical therapy and on 12/25/2019, she underwent EGD and was found to have a stricture at the GE junction as well as the pylorus and underwent balloon dilatation of both the areas. She was also found to have an esophageal candidiasis and treated appropriately. She reports that she has had recurrent issues with dysphagia since her last procedure which was over 2 years ago. DESCRIPTION OF PROCEDURE: The patient was brought to the endoscopy suite and laid in the left lateral decubitus position. After adequate IV pain and sedative medications and monitored anesthesia care, the mouthpiece was applied. Endoscope was placed in the mouth to visualize the pharynx and hypopharyngeal region. Vocal cords, epiglottis and vallecula identified and appeared to be normal. The endoscope was gently intubated the esophageal opening and esophagus insufflated. The endoscope was then advanced to the first, second and third portion of the esophagus at the level of the GE junction. Reflux esophagitis between [place] grade B and C identified as well as a mild distal esophageal stricture. A biopsy was taken with forceps with visualization with good hemostasis. The endoscope was then advanced into the stomach where postsurgical changes from a gastric sleeve resection were identified. The endoscope was retroflexed. Once again visualizing a small hiatal hernia approximately 1.5 cm in size. There were no gastric strictures; however, again the pyloric stricture was once again identified as well as a moderate gastritis. Biopsy was taken of the antrum to rule out H. pylori with visualization with good hemostasis. The endoscope was then advanced into the first and second portions of the duodenum, which appeared normal. The balloon was placed in the duodenum and pulled back to the area of the stricture. We then proceeded with graded dilatation from 2, 4, then eventually 6 atmospheres pressure of 20 mm in luminal diameter with moderate resistance and left this in place for approximately 60 seconds. The balloon was then desufflated and removed with visualization and good hemostasis as well as no mucosal tears. The balloon was then pulled back to the area of the gastroesophageal stricture and we then proceeded in a great stepwise fashion from 2, 4, then eventually 5.5 atmospheres of pressure with moderate resistance or approximately 19.5 mm in luminal diameter and left this in place for approximately 60 seconds. The balloon was then desufflated and removed with visualization with good hemostasis as well as no mucosal tears. The endoscope was then slowly withdrawn, taking a second look and suctioning all residual air with no additional findings. The patient tolerated the procedure well. We will recommend that she continue with adequate medical management for the strictures as well as gastritis and being status post a gastric sleeve resection, which would encompass smaller more frequent meals, a high protein diet with lean meat protein sources, which should be first and foremost and when she feels any sensation of satiety, she should stop eating and to not drink milk as well. She also needs to continue with her PPI acid reducers. She also needs to avoid caffeinated beverages, spicy or greasy and acidic foods. Her last balloon dilatation of both the stricture was over 2 years ago and we were once again able to successfully dilate both the areas and when she again becomes symptomatic, we will have her follow up for repeat dilatation. Job ID: [id number] DocumentID: [id number] Dictated Date: 03/09/2022 12:20:23 Tester Equipment Date: 03/09/2022 20:19:00 Dictated By: ISELA OLSEN MD [facility]ant[facility]
== END 2022-03-09 13:15 | disposition home or self-care (01) ==
LOC: ENDO 10:25
PROVIDERS: ATTEND Surgery
DX: K31.89 Other diseases of stomach and duodenum (principal); K21.00 Gastro-esophageal reflux disease with esophagitis, without bleeding; K22.2 Esophageal obstruction; K29.70 Gastritis, unspecified, without bleeding; K44.9 Diaphragmatic hernia without obstruction or gangrene; K31.1 Adult hypertrophic pyloric stenosis; Z79.899 Other long term (current) drug therapy
CPT/HCPCS: 88305